=== PATIENT | female | born 1960 | race Caucasian/White ===

== ENCOUNTER 2017-10-16 02:52 | Inpatient (IN) | payer OTHER ==
[~2017-10-16] VITALS: Ht 167.6 cm; Wt 95.2 kg
[2017-10-16 02:54] VITALS: Ht 167.6 cm; Wt 95.2 kg
[2017-10-16 05:31] LABS: BASOPHIL % 0.4 % (0-2); PLATELET COUNT 233 x10^3mcL (130-400); RED CELL DISTRIBUTION WIDTH 13.1 % (11.5-14.5)
[2017-10-16 05:42] LABS: CARBON DIOXIDE 26.4 mmol/L (21-32); CHLORIDE SERUM 102 mmol/L (98-107); CREATININE SERUM 0.8 mg/dL (0.6-1.0); GFR1 > 60 mL/min; GLUCOSE SERUM 128 mg/dL (74-106); POTASSIUM SERUM 3.7 mmol/L (3.5-5.1); SODIUM SERUM 136 mmol/L (136-145)
[2017-10-16 05:46] LABS: ALBUMIN 3.8 g/dL (3.4-5.0); ALKALINE PHOSPHATASE 109 U/L (46-116); ALT/SGPT 50 U/L (14-59); AST/SGOT 27 U/L (15-37); BILIRUBIN TOTAL 0.5 mg/dL (0.20-1.00); LIPASE 96 IU/L (73-393); TOTAL PROTEIN, SERUM 7.1 g/dL (6.4-8.2)
[2017-10-16 07:00] VITALS: BP 152/64
[2017-10-16 07:31] LABS: T3 TOTAL 1.55 ng/mL
[2017-10-16 07:38] LABS: MAGNESIUM 2.1 mg/dL (1.8-2.4); PHOSPHOROUS 3.3 mg/dL (2.5-4.9)
[2017-10-16 07:49] LABS: FREE T4 1.21 ng/dL (0.76-1.46); FREE THYROXINE INDEX 3.4 ug/dL (1.4-4.5); T4(THYROXINE) 9.4 ug/dL (4.7-13.3)
[2017-10-16 07:51] LABS: CHOLESTEROL/HDL RATIO 3.4
[2017-10-16 07:57] VITALS: BP 152/64
[2017-10-16 08:11] LABS: UA SPECIFIC GRAVITY <=1.005 (1.005-1.035); microscopic required? YES; urine erythrocyte NEGATIVE (NEGATIVE)
[2017-10-16 08:26] LABS: AMPHETAMINE QUAL UR NONE DETECTED (NEG <=1000)
[2017-10-16 10:26] VITALS: BP 142/63
[2017-10-16 14:07] VITALS: BP 132/57
[2017-10-16 18:14] VITALS: BP 144/61
[2017-10-16 21:00] VITALS: BP 129/62
[2017-10-17 05:47] VITALS: BP 117/64
[2017-10-17 08:45] VITALS: BP 128/55
[2017-10-17] MEDS ORDERED: LIPI10 PO (13:04)
[2017-10-17] MEDS ORDERED: MOT800 PO (13:07)
[2017-10-17 13:51] VITALS: BP 129/53
[2017-10-17 16:14] VITALS: BP 129/53
== END 2017-10-17 16:41 | disposition home or self-care (01) | DRG 205 ==
LOC: ED 02:52 → DU 06:12
PROVIDERS: Emergency Medicine; Family Medicine
DX: M94.0 Chondrocostal junction syndrome [Tietze] (principal); N17.0 Acute kidney failure with tubular necrosis; N39.0 Urinary tract infection, site not specified; E78.5 Hyperlipidemia, unspecified; E66.3 Overweight; E78.00 Pure hypercholesterolemia, unspecified; Z60.2 Problems related to living alone; Z79.899 Other long term (current) drug therapy
CPT/HCPCS: 83880; 84439; J0696; J7030; Q0092

== ENCOUNTER → 2017-10-22 | Outpatient (CLI) | payer OTHER ==
[~2017-10-22] MED LIST: LIPI10 PO; MOT800 PO
== END | disposition home or self-care (01) ==
LOC: LB 09:56
DX: K21.9 Gastro-esophageal reflux disease without esophagitis (principal)

== ENCOUNTER → 2017-10-27 | Outpatient (CLI) | payer OTHER | END | disposition home or self-care (01) | LOC: NM 10:08 | DX: R07.9 Chest pain, unspecified (principal) | CPT/HCPCS: A9500; J2785 ==

== ENCOUNTER → 2018-04-26 | Outpatient (CLI) | payer OTHER ==
[2018-04-26 08:49] LABS: microscopic required? YES; urine erythrocyte NEGATIVE (NEGATIVE)
[2018-04-26 09:16] LABS: BASOPHIL % 0.7 % (0-2); PLATELET COUNT 241 x10^3mcL (130-400)
[2018-04-26 09:28] LABS: RED CELL DISTRIBUTION WIDTH 10.8 % (11.5-14.5)
[2018-04-26 09:46] LABS: ALBUMIN 3.6 g/dL (3.4-5.0); ALKALINE PHOSPHATASE 108 U/L (46-116); ALT/SGPT 47 U/L (14-59); AST/SGOT 23 U/L (15-37); BILIRUBIN TOTAL 0.73 mg/dL (0.20-1.00); CALCIUM 9.4 mg/dL (8.5-10.1); CHLORIDE SERUM 107 mmol/L (98-107); CHOLESTEROL 140 mg/dL (<200); CHOLESTEROL/HDL RATIO 2.5; CREATININE SERUM 0.7 mg/dL (0.6-1.0); FREE T4 1.72 ng/dL (0.76-1.46); GFR1 > 60 mL/min; GLUCOSE SERUM 111 mg/dL (74-106); HDL CHOLESTEROL 56 mg/dL (40-60); POTASSIUM SERUM 4.2 mmol/L (3.5-5.1); SODIUM SERUM 142 mmol/L (136-145); TOTAL PROTEIN, SERUM 7.2 g/dL (6.4-8.2); TRIGLYCERIDES 68 mg/dL (<150)
== END | disposition home or self-care (01) ==
LOC: LB 08:30
DX: E78.5 Hyperlipidemia, unspecified (principal); E66.9 Obesity, unspecified
CPT/HCPCS: 84439

== ENCOUNTER 2018-05-29 16:24 | Emergency (ER) | payer OTHER ==
[~2018-05-29] VITALS: Ht 165.1 cm; Wt 91.6 kg
[2018-05-29 16:25] VITALS: Ht 165.1 cm; Wt 91.6 kg
[2018-05-29 18:00] VITALS: BP 145/80
== END 2018-05-29 18:00 | disposition home or self-care (01) ==
LOC: ED 16:24
DX: T21.11XA Burn of first degree of chest wall, initial encounter (principal); T20.10XA Burn of first degree of head, face, and neck, unspecified site, initial encounter; T79.9XXA Unspecified early complication of trauma, initial encounter; X08.8XXA Exposure to other specified smoke, fire and flames, initial encounter; Y93.89 Activity, other specified; Y92.89 Other specified places as the place of occurrence of the external cause; Y99.8 Other external cause status
CPT/HCPCS: Q0162

== ENCOUNTER 2018-07-27 11:58 | Emergency (ER) | payer OTHER ==
[~2018-07-27] VITALS: Ht 165.1 cm; Wt 90.3 kg
[2018-07-27 12:17] VITALS: Ht 165.1 cm; Wt 90.3 kg
[2018-07-27 15:33] VITALS: BP 144/94
== END 2018-07-27 15:33 | disposition home or self-care (01) ==
LOC: ED 11:58
DX: J06.9 Acute upper respiratory infection, unspecified (principal); J30.9 Allergic rhinitis, unspecified; E78.00 Pure hypercholesterolemia, unspecified

== ENCOUNTER 2018-10-21 09:05 | Emergency (ER) | payer OTHER ==
[~2018-10-21] VITALS: Ht 165.1 cm; Wt 94.8 kg
[2018-10-21 09:07] VITALS: Ht 165.1 cm; Wt 94.8 kg
[2018-10-21 11:43] VITALS: BP 131/73
== END 2018-10-21 11:43 | disposition home or self-care (01) ==
LOC: ED 09:05
DX: J06.9 Acute upper respiratory infection, unspecified (principal); R51 Headache; E78.00 Pure hypercholesterolemia, unspecified
CPT/HCPCS: J1100; J1885; Q0162

== ENCOUNTER 2018-10-27 13:12 | Emergency (ER) | payer OTHER ==
[~2018-10-27] VITALS: Ht 165.1 cm; Wt 94.3 kg
[2018-10-27 13:19] VITALS: Ht 165.1 cm; Wt 94.3 kg
[2018-10-27 14:20] LABS: BASOPHIL % 1.1 % (0-2); PLATELET COUNT 281 x10^3mcL (130-400); RED CELL DISTRIBUTION WIDTH 12.9 % (11.5-14.5)
[2018-10-27 14:30] LABS: CALCIUM 9.1 mg/dL (8.5-10.1); CARBON DIOXIDE 27.8 mmol/L (21-32); CHLORIDE SERUM 98 mmol/L (98-107); CREATININE SERUM 0.9 mg/dL (0.6-1.0); GFR1 > 60 mL/min; GLUCOSE SERUM 99 mg/dL (74-106); SODIUM SERUM 134 mmol/L (136-145)
[2018-10-27 14:34] LABS: ALBUMIN 4.3 g/dL (3.4-5.0); ALKALINE PHOSPHATASE 138 U/L (46-116); ALT/SGPT 44 U/L (14-59); AST/SGOT 31 U/L (15-37); BILIRUBIN TOTAL 0.9 mg/dL (0.20-1.00); LIPASE 80 IU/L (73-393); TOTAL PROTEIN, SERUM 8.1 g/dL (6.4-8.2)
[2018-10-27 15:01] LABS: microscopic required? NO
[2018-10-27 15:07] LABS: UA SPECIFIC GRAVITY <=1.005 (1.005-1.035); urine erythrocyte NEGATIVE (NEGATIVE)
[2018-10-27 15:31] VITALS: BP 148/62
== END 2018-10-27 15:31 | disposition home or self-care (01) ==
LOC: ED 13:12
PROVIDERS: Emergency Medicine
DX: K29.70 Gastritis, unspecified, without bleeding (principal); B34.9 Viral infection, unspecified; R03.0 Elevated blood-pressure reading, without diagnosis of hypertension; R51 Headache; E78.00 Pure hypercholesterolemia, unspecified; Z98.890 Other specified postprocedural states
CPT/HCPCS: 36415; Q0162

== ENCOUNTER → 2018-11-16 | Outpatient (CLI) | payer OTHER ==
[2018-11-16 07:17] LABS: BASOPHIL % 0.5 % (0-2); PLATELET COUNT 232 x10^3mcL (130-400); RED CELL DISTRIBUTION WIDTH 13.1 % (11.5-14.5)
[2018-11-16 08:00] LABS: ALBUMIN 3.7 g/dL (3.4-5.0); ALKALINE PHOSPHATASE 118 U/L (46-116); ALT/SGPT 40 U/L (14-59); AST/SGOT 23 U/L (15-37); BILIRUBIN TOTAL 0.8 mg/dL (0.20-1.00); CALCIUM 8.7 mg/dL (8.5-10.1); CARBON DIOXIDE 27.1 mmol/L (21-32); CHLORIDE SERUM 103 mmol/L (98-107); CHOLESTEROL 149 mg/dL (<200); CHOLESTEROL/HDL RATIO 2.6; CREATININE SERUM 0.7 mg/dL (0.6-1.0); FREE T4 1.05 ng/dL (0.76-1.46); GFR1 > 60 mL/min; GLUCOSE SERUM 104 mg/dL (74-106); HDL CHOLESTEROL 57 mg/dL (40-60); SODIUM SERUM 138 mmol/L (136-145); TOTAL PROTEIN, SERUM 7.1 g/dL (6.4-8.2); TRIGLYCERIDES 63 mg/dL (<150)
== END | disposition home or self-care (01) ==
LOC: LB 06:55
PROVIDERS: Family Medicine
DX: E11.9 Type 2 diabetes mellitus without complications (principal); E78.5 Hyperlipidemia, unspecified
CPT/HCPCS: 84439

== ENCOUNTER → 2018-12-28 | Outpatient (CLI) | payer OTHER | END | disposition home or self-care (01) | LOC: MA 09:37 | PROC: BH02ZZZ Plain Radiography of Bilateral Breasts (ICD-10-PCS; principal; 2018-12-28) | DX: Z12.31 Encounter for screening mammogram for malignant neoplasm of breast (principal) | CPT/HCPCS: 77067 ==

== ENCOUNTER → 2019-01-11 | Outpatient (CLI) | payer OTHER | END | disposition home or self-care (01) | LOC: MA 09:38 | PROC: BH01ZZZ Plain Radiography of Left Breast (ICD-10-PCS; principal; 2019-01-11) | DX: R92.2 Inconclusive mammogram (principal) | CPT/HCPCS: 77065 ==

== ENCOUNTER 2019-04-20 11:09 | Emergency (ER) | payer OTHER ==
[~2019-04-20] VITALS: Ht 167.6 cm; Wt 93.4 kg
[2019-04-20 11:27] VITALS: Ht 167.6 cm; Wt 93.4 kg
[2019-04-20 12:43] LABS: BASOPHIL % 0.3 % (0-2); PLATELET COUNT 244 x10^3mcL (130-400); RED CELL DISTRIBUTION WIDTH 12.4 % (11.5-14.5)
[2019-04-20 12:45] LABS: CARBON DIOXIDE 31.6 mmol/L (21-32); CHLORIDE SERUM 103 mmol/L (98-107); GFR1 > 60 mL/min; GLUCOSE SERUM 104 mg/dL (74-106); POTASSIUM SERUM 4.5 mmol/L (3.5-5.1); SODIUM SERUM 138 mmol/L (136-145)
[2019-04-20 14:55] VITALS: BP 140/70
== END 2019-04-20 14:58 | disposition home or self-care (01) ==
LOC: ED 11:09
PROVIDERS: Emergency Medicine
DX: R51 Headache (principal); J06.9 Acute upper respiratory infection, unspecified
CPT/HCPCS: 36415; 87804; J1200; J1885; J2765

== ENCOUNTER 2019-05-04 13:23 | Emergency (ER) | payer OTHER ==
[~2019-05-04] VITALS: Ht 165.1 cm; Wt 93.4 kg
[2019-05-04 13:25] VITALS: Ht 165.1 cm; Wt 93.4 kg
[2019-05-04 16:19] VITALS: BP 138/52
== END 2019-05-04 16:19 | disposition home or self-care (01) ==
LOC: ED 13:23
DX: S61.211A Laceration without foreign body of left index finger without damage to nail, initial encounter (principal); W26.0XXA Contact with knife, initial encounter; Y93.89 Activity, other specified; Y92.89 Other specified places as the place of occurrence of the external cause; Y99.8 Other external cause status
CPT/HCPCS: 90715; J2001

== ENCOUNTER 2019-05-06 08:41 | Emergency (ER) | payer OTHER ==
[~2019-05-06] VITALS: Ht 165.1 cm; Wt 95.3 kg
[2019-05-06 08:47] VITALS: BP 140/58; Ht 165.1 cm; Wt 95.3 kg
== END 2019-05-06 09:37 | disposition left against medical advice (07) ==
LOC: ED 08:41
DX: Z53.21 Procedure and treatment not carried out due to patient leaving prior to being seen by health care provider (principal)

== ENCOUNTER 2019-05-06 18:02 | Emergency (ER) | payer OTHER ==
[~2019-05-06] VITALS: Ht 165.1 cm; Wt 94.3 kg
[2019-05-06 18:07] VITALS: BP 132/75; Ht 165.1 cm; Wt 94.3 kg
== END 2019-05-06 18:40 | disposition home or self-care (01) ==
LOC: ED 18:02
DX: S61.211D Laceration without foreign body of left index finger without damage to nail, subsequent encounter (principal); E78.00 Pure hypercholesterolemia, unspecified; W26.0XXD Contact with knife, subsequent encounter

== ENCOUNTER 2019-05-14 17:59 | Emergency (ER) | payer OTHER ==
[~2019-05-14] VITALS: Ht 165.1 cm; Wt 95.7 kg
[2019-05-14 18:04] VITALS: BP 135/68; Ht 165.1 cm; Wt 95.7 kg
== END 2019-05-14 18:35 | disposition home or self-care (01) ==
LOC: ED 17:59
DX: S61.211D Laceration without foreign body of left index finger without damage to nail, subsequent encounter (principal); E78.00 Pure hypercholesterolemia, unspecified; X58.XXXD Exposure to other specified factors, subsequent encounter

== ENCOUNTER → 2019-09-20 | Outpatient (CLI) | payer OTHER ==
[2019-09-20 07:39] LABS: BASOPHIL % 0.3 % (0-2); PLATELET COUNT 221 x10^3mcL (130-400); RED CELL DISTRIBUTION WIDTH 12.7 % (11.5-14.5)
[2019-09-20 08:00] LABS: ALBUMIN 3.7 g/dL (3.4-5.0); ALKALINE PHOSPHATASE 88 U/L (46-116); ALT/SGPT 30 U/L (14-59); AST/SGOT 21 U/L (15-37); BILIRUBIN TOTAL 0.8 mg/dL (0.20-1.00); CALCIUM 8.5 mg/dL (8.5-10.1); CARBON DIOXIDE 28.9 mmol/L (21-32); CHLORIDE SERUM 104 mmol/L (98-107); CHOLESTEROL 175 mg/dL (<200); CHOLESTEROL/HDL RATIO 2.8; CREATININE SERUM 0.9 mg/dL (0.6-1.0); GFR1 > 60 mL/min; GLUCOSE SERUM 109 mg/dL (74-106); HDL CHOLESTEROL 63 mg/dL (40-60); SODIUM SERUM 140 mmol/L (136-145); TOTAL PROTEIN, SERUM 7.2 g/dL (6.4-8.2); TRIGLYCERIDES 77 mg/dL (<150)
== END | disposition home or self-care (01) ==
LOC: LB 07:03
PROVIDERS: Family Medicine
DX: Z76.89 Persons encountering health services in other specified circumstances (principal)
CPT/HCPCS: 82652